=== PATIENT | female | born 1980 | race Caucasian/White ===

== ENCOUNTER 2016-10-27 03:48 | Inpatient (IN) | payer OTHER ==
[~2016-10-27] VITALS: Ht 165.1 cm; Wt 130.2 kg
[2016-10-27] VITALS (11 sets, daily range): BP systolic 107–137; BP diastolic 50–574
--- NOTE | ~2016-10-27 | CON ---
[place], [place] REPORT OF CONSULTATION NAME[id number] UNIT #: [id number] ROOM: [facility] DOCTOR: DENISE WHITAKER MD BIRTHDATE: [birth year] DOS: 10/27/2016 PULMONARY CONSULTATION CONSULTATION REQUESTED BY: Hospitalist services. REASON FOR CONSULTATION: Assessment of the current acute respiratory failure. HISTORY OF PRESENT ILLNESS: This is a 36-year-old white female without any known past, pulmonary problems; patient came into the hospital for extraction of teeth. The patient has about 10 teeth extracted yesterday. Postoperatively, the patient developed severe hypoxic respiratory failure and inability to improve the oxygen saturation. She was started on oxygen supplementation with Venturi mask. The patient was also ordered the BiPAP, but the patient does not wish to use the BiPAP. She was noted severe hypoxemia. Arterial blood gases that was done for this patient yesterday as well that shows a pO2 of only 55.7. The patient has been admitted to the intensive care unit for further medical management. She has a chest x-ray and CT of the chest for the patient was done yesterday as well. Currently, the patient denies symptoms of coughing, chest pain, sputum expectoration or acute shortness of breath, using oxygen supplementation with nasal cannula. REVIEW OF SYSTEMS: CONSTITUTIONAL: She does complain of some fatigue. Denies symptoms of fever or chills. EYES: Denies any burning, redness, or tenderness. EARS, NOSE, AND THROAT: No sore throat, hoarseness, otalgia, postnasal drainage. CARDIOVASCULAR: Denies anginal pain, edema of lower extremities or palpitations. GASTROINTESTINAL: Denies dysphagia, nausea, vomiting, diarrhea, abdominal pain, hematemesis, melena, or hematochezia. GENITOURINARY: Suprapubic pain with urinary incontinence. MUSCULOSKELETAL: Denies acute joint pain, redness, or tenderness. CENTRAL NERVOUS SYSTEM: No dizziness, headache, diplopia, syncopal episodes. SKIN: No lesions or rashes. Remaining systems were reviewed with the patient, they were noted all negative. PAST MEDICAL HISTORY: Noted: 1. History of chronic moderate obesity. 2. Type 2 diabetes mellitus. 3. Mixed hyperlipidemia. PAST SURGICAL HISTORY: Noted: 1. Cholecystectomy. 2. D and C. 3. Recent teeth extraction 10/27/2016. 4. History of tubal ligation. [place], [place] REPORT OF CONSULTATION NAME: [facility]ES [facility]: [id number] UNIT #: [id number] ROOM: [facility] DOCTOR: JESSA SALVADOR MD,DENISE BIRTHDATE: [birth year] SOCIAL HISTORY: The patient is . She lives at home. Denies any past history of tobacco use, alcohol or illicit drugs. FAMILY HISTORY: The patient noted mother from complication related to the lymphoma, history about father was unknown. HOME MEDICATIONS: Noted use of restoril, Claritin, Glucotrol, lisinopril, and metformin. DRUG ALLERGIES: For this noted as no known drug allergies. PHYSICAL EXAMINATION: GENERAL: This is a 18-hnmjx-pvv white female, currently sitting on the bed in the Intensive Care Unit without any distress at the time of the assessment. VITAL SIGNS: Height of 5 feet 5 inches, weight of 287 pounds, BMI of 47.7. Vital signs of the patient which were recorded showed the temperature noted normal since yesterday as respiratory rate range between 18-24, heart rate of 122-92, blood pressure 130/66-137/77, pulse oxygen saturation of the patient on 3 liters nasal cannula 91%-95% saturation with the BiPAP previously 84% saturation and ____ was 85% saturation. HEENT: Head was atraumatic. Eyes nonicterus. Oral mucosa moist. Severely reduced posterior pharyngeal space, high tongue base and crowding of soft tissue structures. CARDIOVASCULAR: S1, S2 is audible. LUNGS: The patient was noted with scattered crackles of the lung noted without any wheezing. ABDOMEN: Soft, obese, nontender. EXTREMITIES: Show no edema. LABORATORY DATA: PT, PTT for the patient that was done yesterday was normal. Arterial blood gas yesterday pH of 7.36, pCO2 36.5, pO2 of 55.7 on 50% Venturi mask. CK-MB and troponin of the patient that were done yesterday and this morning to assess were normal. CBC yesterday 10/27/2016 WBC count 19.2, hemoglobin and hematocrit were normal. Platelet count was normal, 91% segmented neutrophils. CMP yesterday on admission, glucose 160, BUN and creatinine was normal. Remaining LFTs were normal. One view chest x-ray of the patient that was done does not show any acute pulmonary abnormalities on the single view chest x-ray. CT scan of the chest for the patient shows findings of several areas of atelectasis with infiltration in consolidation. The ____ were noted more in the dependent area of the lung as well. Relatively the upper lung of the patient was clear. There was no evidence of pulmonary embolism. The mediastinal ____ examination patient does not show any significant lymphadenopathy. IMPRESSION: 1. The patient who has been currently admitted to the hospital noted with acute severe hypoxemic respiratory failure postoperatively after the current teeth extraction with current finding with possibility of postoperative atelectasis negative pressure pulmonary edema and possibility of aspiration pneumonia would be considered. However, the patient does not show any manifestations. The [place], [place] REPORT OF CONSULTATION NAME: SAJI CORTES UNIT #: [id number] ROOM: [facility] DOCTOR: JESSA SALVADOR MD,DENISE BIRTHDATE: [birth year] patient with fever, signs of sepsis and was not ill prior to the current illness. 2. History of chronic obesity with the suspicion of obstructive sleep apnea disorder. Clinical assessment as well. 3. History of type 2 diabetes mellitus and essential hypertension. PLAN OF TREATMENT: The patient has been responding to the current treatment which was started today consisting by the use of the bronchodilators for this patient continued get the DVT prophylaxis. She was also given Zithromax, Unasyn and antibiotics. Chest x-ray of the patient that has been done this morning was reviewed for further assessment shows reduction of the previous infiltration; however, the resolution was still noted incomplete on the chest x-ray as compared to the previous CT scan of the chest comparison of yesterday. Continue incentive spirometry. Continue current antibiotics for the patient for community acquired aspiration for the gram-positive organism for this patient as well. Monitor respiratory status closely. Oxygen supplementation to be gradually titrated to maintain a saturation of 92% greater. Chest auscultation was still noted crackles suspecting with current edema in the lungs or infiltration in the lungs as reported previously. Bronchodilator will continue help mobilize secretions. We will get the sputum for Gram stain and culture if the patient is able to expectorate any sputum. Another chest x-ray of the patient repeated PTT in the morning for this patient as well. The patient to continue close monitoring of the current respiratory status with a PA lateral chest x-ray will be done Patient needs to be assessed for possibility of obstructive sleep apnea disorder. The patient once discharged from the hospital. DENISE GERMAIN MD CM:CONSTR:REPORT OF CONSULTATION 1222 10/29/16 0304 interface
--- NOTE | ~2016-10-27 | O ---
[place], [place] OPERATIVE NOTE NAME: SAJI CORTES UNIT #: [id number] ROOM: [facility] DOCTOR: MARY LAZARO DMD BIRTHDATE: [birth year] DOS: 10/28/2016 PREOPERATIVE DIAGNOSES: Caries and anxiety. POSTOPERATIVE DIAGNOSES: Caries and anxiety. ANESTHESIA: General anesthesia with endotracheal intubation. FLUIDS: Minimal. ESTIMATED BLOOD LOSS: 200 mL. COMPLICATIONS: Multiple fractured roots and extremely dense bone. CONDITION: To ICU, stable. DESCRIPTION OF PROCEDURE: The patient was brought to the OR and placed in supine position. IV and EKG lines were placed. Endotracheal intubation and general anesthesia was administered. The patient was prepped and draped for oral procedures. Risks and benefits were explained to the patient prior to surgery. Clinical exam and x-rays taken determined impactions of teeth numbers 1, 16, 17, and 32. Extensive caries of teeth numbers 2 14, 15, 18, 19, 20, and 31. PROCEDURES PERFORMED: Full thickness flaps in the upper right and lower right quadrants. Complete extraction of teeth numbers 1 and 2 and teeth numbers 31 and 32. Moderate bone removal in those areas including sectioning of tooth #32. Gelfoam placed with 4-0 Vicryl. Upper left full thickness flap with extensive bone removal. Multiple fractured roots on teeth numbers 14 and 15. Complete extraction of teeth numbers 14, 15, and 16. Gelfoam placed, sutured with 4-0 Vicryl. Lower left quadrant, a full thickness flap with extensive bone removal. Multiple fractured roots on teeth numbers 18 and 19. Complete extraction of teeth numbers 20, 19, 18. Coronectomy on tooth #17, root to remain because of the density of bone and possibility of numbness. Gelfoam placed, sutured with 4-0 Vicryl. Lavaged x 2. Throat pack removed. The patient left the OR in good condition and went to PACU. [place], [place] OPERATIVE NOTE NAME: SAJI CORTES UNIT #: [id number] ROOM: [facility] DOCTOR: MARY LAZARO DMD BIRTHDATE: [birth year] MARY LAZARO DMD CM:OPRECORD:OPERATIVE NOTE [id number] MARY LAZARO DMD 10/28/16 1645 interface
--- NOTE | ~2016-10-27 | PR ---
[place], [place] PROGRESS NOTE [id number] UNIT #: [id number] ROOM: [facility] DOCTOR: DENISE WHITAEKR MD BIRTHDATE: [birth year] DOS: 10/30/2016 PULMONARY PROGRESS NOTE SUBJECTIVE: She has been doing very well at this time. Continues to show progressive improvement and resolution of symptoms of acute shortness of breath. The coughing has been noted minimal. There were no symptoms of chest pain or any abdominal pain. The patient remains on room air oxygen at rest. OBJECTIVE: VITAL SIGNS: Show normal temperature, respiratory rate 17, heart rate 75, blood pressure 142/78-142/79. Intake for the patient 1200, output 2100 mL. Pulse oxygen saturation on room air 96% saturation. HEENT: Showed no acute change. NECK: Supple. CARDIOVASCULAR: S1, S2 audible. LUNGS: The patient was noted without any wheeze or crackles at the present time. ABDOMEN: Soft and nontender. LABORATORY DATA: Chest x-ray of the patient that was done this morning was reviewed, shows continued progressive resolution and improvement in the pulmonary infiltration, which has been noted almost completely today. IMPRESSION: The patient with progressive resolution of acute hypoxic respiratory failure with acute aspiration pneumonia for this patient as well. The patient has been ambulated today for the patient and noted with only transient oxygen desaturation, very quick recovery. Oxygen saturation noted at about 88%. PLAN OF TREATMENT: The patient will be discharged home on oral antibiotic and Ceftin 500 mg p.o. b.i.d. for 7 more days. Outpatient followup for the patient was advised. The patient was also suspected clinically diagnosis of obstructive sleep apnea disorder as well. [place], [place] PROGRESS NOTE NAME: INDIA CORTESNAYELY Valiente UNIT #: [id number] ROOM: [facility] DOCTOR: DENISE WHITAKER MD BIRTHDATE: [birth year] DENISE GERMAIN MD CM:PNTRANS [id number] DENISE SALVADOR MD 10/31/16226 interface
--- NOTE | ~2016-10-27 | PR ---
[place], [place] PROGRESS NOTE NAME: SAJI CORTES UNIT #: [id number] ROOM: [facility] DOCTOR: DENISE WHITAKER MD BIRTHDATE: [birth year] DOS: 10/29/2016 PULMONARY PROGRESS NOTE SUBJECTIVE: The patient has been noted comfortable. The patient shows reduction of the respiratory symptoms gradually. Shortness of breath has improved. Denies symptoms of chest pain. The coughing has been noted mild without any sputum expectoration. OBJECTIVE: VITAL SIGNS: The patient noted temperature of 103 degree Fahrenheit rectal yesterday. Otherwise noted afebrile. The respiratory rate 20-24, heart rate 99-37, blood pressure 136/70-130/70. The pulse oxygen saturation was noted as 94% on 4 liters nasal cannula, and room air was later noted at 94% saturation. HEENT: Examination shows no acute change. NECK: Supple. CARDIOVASCULAR SYSTEM: S1, S2 audible. LUNGS: The patient was noted with questionable crackles, no wheezing. ABDOMEN: Soft, nontender. LABORATORY DATA: The patient's CBC was noted with mild anemia, otherwise normal. Chest x-ray of the patient this morning shows continued improvement in the pulmonary infiltration bilaterally. IMPRESSION: Resolving acute aspiration pneumonia with area of atelectasis of the lung for this patient as well as acute hypoxic respiratory failure. PLAN OF TREATMENT: The patient has been ambulating on my advice and noted transit oxygen desaturation, but recovered quickly on room air oxygen of the patient to 91-92% saturation. The patient will be continued on the oxygen supplementation at night time to manage any hypoxia. Other treatment changes need to be done for this patient based on the progression of the current illness. Another chest x-ray in the morning. Consider possible discharge home in the morning. The patient with oxygen assessment as the patient's current condition for improvement. [place], [place] PROGRESS NOTE NAME: SAJI CORTES UNIT #: [id number] ROOM: [facility] DOCTOR: DENISE WHITAKER MD BIRTHDATE: [birth year] DENISE GERMAIN MD CM:PNTRANS [id number] DENISE SALVADOR MD 10/30/16 011 interface
[~2016-10-27 03:48] MED LIST: ALL DAY ALLERGY10 MG PO; ANAPROX DS550 MG PO; CLEOCIN HCL300 MG PO; FLUCONAZOLE150 MG PO; GLUCOTROL5 MG PO; LISINOPRIL5 MG PO; METFORMIN HCL1000 MG PO; TANZEUM30 MG SC; VICODIN 5/500 505 MG PO
[2016-10-27] MEDS ORDERED: CLINDAMYCIN150 MG PO (14:18)
[2016-10-27] MEDS ORDERED: MEDROL DOSEPAK4 MG PO (14:19)
[2016-10-27] MEDS ORDERED: NORCO 5-325 TA1 EACH PO (14:20)
[2016-10-27 17:44] LABS: ABG BASE EXCESS -3.8 mmol/L (-2.0-2.0); ABG CO2 CONTENT 21.5 mmol/L (23-27); ABG HCO3 20.4 mmol/l (22-26); ABG TEMPERATURE 98.7 F (98.0-99.0); ARTERIAL BLOOD GAS PH 7.367 (7.35-7.45); ARTERIAL BLOOD GAS PO2 55.7 mmHg (80-90)
[2016-10-27 18:09] LABS: HEMATOCRIT 37.1 % (37.0-47.0); HEMOGLOBIN 12.1 g/dl (12.0-16.0); MEAN CELL VOLUME 90.5 fl (81.0-99.0); MEAN CORPUSCULAR HGB 29.5 pg (27.0-31.0); MEAN CORPUSCULAR HGB CONC 32.6 g/dl (33.0-37.0); PLATELET COUNT AUTOMATED 314 10*3/uL (130-400); RED CELL DISTRI WIDTH 13.3 % (0-14.5); WHITE BLOOD COUNT 19.2 10*3/uL (4.8-10.8)
[2016-10-27 18:18] LABS: PROTHROMBIN TIME 10.1 SECONDS (9.0-12.4)
[2016-10-27 18:25] LABS: CKMB 1.4 ng/ml (0.5-3.6); CPK 102 U/L (26-192)
[2016-10-27 18:26] LABS: ALBUMIN 3.2 gm/dl (3.1-4.5); ALKALINE PHOSPHATASE 83 U/L (45-117); BILIRUBIN, TOTAL 0.4 mg/dl (0.2-1.0); BUN 10 mg/dl (7-24); CARBON DIOXIDE 25 mmol/L (21-32); CHLORIDE 106 mmol/L (98-107); CHOLESTEROL 187 mg/dL (<200); EST GLOM FILT AFRICAN AMERICAN > 60 ml/min; FREE T4 1.33 ng/dl (0.76-1.46); GLUCOSE 168 mg/dL (65-99); HDL CHOLESTEROL 52 mg/dl (40-60); LDL CHOLESTEROL 117 mg/dL (9-159); MAGNESIUM 1.4 mg/dL (1.5-2.1); PHOSPHOROUS 2.5 mg/dL (2.5-4.9); POTASSIUM 4.4 mmol/L (3.5-5.1); SGOT/AST 50 IU/L (3-35); SGPT/ALT 57 U/L (12-78); SODIUM 137 mmol/L (136-145); TRIGLYCERIDES 88 mg/dl (<150); VLDL CHOLESTEROL 18 mg/dL (6-40)
[2016-10-27 18:27] LABS: LYMPHOCYTE # 1.3 10*3/uL (1.3-4.4); MONOCYTE # 0.4 10*3/uL (0.1-1.0); NEUTROPHIL # 17.5 10*3/uL (2.3-7.9); NEUTROPHILS 91 % (47-73); PLATELET SUFFICIENCY NORMAL (NORMAL); TOTAL CELLS COUNTED 100 #CELLS; TROPONIN I < 0.015 ng/ml (<0.045)
[2016-10-27 18:30] LABS: HEMOGLOBIN A1c 7.1 % (4.8-5.6)
[2016-10-27 18:32] LABS: THYROID STIM HORMONE (HS) 0.822 uIU/ml (0.358-4.75)
[2016-10-27 18:50] LABS: FOLIC ACID 21.33 ng/mL (>5.38); VITAMIN D, 25-HYDROXY 16.5 ng/mL (30-100)
[2016-10-28] VITALS: BP 111/47
[2016-10-28 00:41] LABS: CKMB 1.6 ng/ml (0.5-3.6); CPK 120 U/L (26-192); TROPONIN I < 0.015 ng/ml (<0.045)
[2016-10-28 04:00] VITALS: BP 116/50
[2016-10-28 06:48] LABS: BASO % 0.3 % (0.0-1.0); EOS % 0.1 % (1.0-4.0); HEMATOCRIT 33.4 % (37.0-47.0); HEMOGLOBIN 10.9 g/dl (12.0-16.0); LYMPH # 1.5 10*3/uL (1.3-4.4); LYMPH % 12.7 % (27.0-41.0); MEAN CELL VOLUME 90.5 fl (81.0-99.0); MEAN CORPUSCULAR HGB 29.5 pg (27.0-31.0); MEAN CORPUSCULAR HGB CONC 32.6 g/dl (33.0-37.0); MEAN PLATELET VOLUME 9.2 fl (9.6-12.3); MONO # 0.8 10*3/uL (0.1-1.0); MONO % 6.7 % (3.0-9.0); NEUT # 9.7 10*3/uL (2.3-7.9); PLATELET COUNT AUTOMATED 288 10*3/uL (130-400); RED BLOOD COUNT 3.69 10*6/uL (4.10-5.10); RED CELL DISTRI WIDTH 13.7 % (0-14.5); WHITE BLOOD COUNT 12.1 10*3/uL (4.8-10.8)
[2016-10-28 07:06] LABS: CKMB 1.5 ng/ml (0.5-3.6); CPK 98 U/L (26-192)
[2016-10-28 07:10] LABS: TROPONIN I < 0.015 ng/ml (<0.045)
[2016-10-28 07:27] LABS: CHLORIDE 106 mmol/L (98-107); POTASSIUM 3.9 mmol/L (3.5-5.1); SODIUM 138 mmol/L (136-145)
[2016-10-28 07:33] LABS: BUN 8 mg/dl (7-24); CARBON DIOXIDE 27 mmol/L (21-32); EST GLOM FILT AFRICAN AMERICAN > 60 ml/min; GLUCOSE 142 mg/dL (65-99)
[2016-10-28 08:00] VITALS: BP 108/64
[2016-10-28 12:00] VITALS: BP 110/60
[2016-10-28 16:00] VITALS: BP 132/71
[2016-10-28 20:00] VITALS: BP 157/61
[2016-10-29] VITALS (7 sets, daily range): BP systolic 114–151; BP diastolic 53–87
[2016-10-29 06:02] LABS: BASO % 0.4 % (0.0-1.0); EOS # 0.1 10*3/uL (0.0-0.4); EOS % 1.4 % (1.0-4.0); HEMATOCRIT 32.6 % (37.0-47.0); HEMOGLOBIN 10.6 g/dl (12.0-16.0); LYMPH # 1.7 10*3/uL (1.3-4.4); LYMPH % 18.5 % (27.0-41.0); MEAN CELL VOLUME 91.8 fl (81.0-99.0); MEAN CORPUSCULAR HGB 29.9 pg (27.0-31.0); MEAN CORPUSCULAR HGB CONC 32.5 g/dl (33.0-37.0); MEAN PLATELET VOLUME 9.3 fl (9.6-12.3); MONO # 0.7 10*3/uL (0.1-1.0); NEUT # 6.4 10*3/uL (2.3-7.9); NEUT % 71.5 % (47.0-73.0); PLATELET COUNT AUTOMATED 270 10*3/uL (130-400); RED BLOOD COUNT 3.55 10*6/uL (4.10-5.10); RED CELL DISTRI WIDTH 13.7 % (0-14.5)
[2016-10-30 04:00] VITALS: BP 142/78
[2016-10-30 05:53] LABS: BASO % 0.5 % (0.0-1.0); EOS # 0.2 10*3/uL (0.0-0.4); EOS % 3.3 % (1.0-4.0); HEMATOCRIT 32.6 % (37.0-47.0); HEMOGLOBIN 10.4 g/dl (12.0-16.0); LYMPH # 1.9 10*3/uL (1.3-4.4); LYMPH % 26.1 % (27.0-41.0); MEAN CELL VOLUME 91.6 fl (81.0-99.0); MEAN CORPUSCULAR HGB 29.2 pg (27.0-31.0); MEAN CORPUSCULAR HGB CONC 31.9 g/dl (33.0-37.0); MEAN PLATELET VOLUME 9.5 fl (9.6-12.3); MONO # 0.6 10*3/uL (0.1-1.0); MONO % 7.7 % (3.0-9.0); NEUT # 4.6 10*3/uL (2.3-7.9); NEUT % 62.1 % (47.0-73.0); PLATELET COUNT AUTOMATED 297 10*3/uL (130-400); RED BLOOD COUNT 3.56 10*6/uL (4.10-5.10); RED CELL DISTRI WIDTH 13.6 % (0-14.5); WHITE BLOOD COUNT 7.3 10*3/uL (4.8-10.8)
[2016-10-30] MEDS ORDERED: CEFUROXIME AXE250 MG PO (09:58)
== END 2016-10-30 11:45 | disposition home or self-care (01) | DRG 853 ==
LOC: SDC 03:48 → ICCU 15:43
PROVIDERS: Internal Medicine
PROC: 0CDWXZ1 Extraction of Upper Tooth, Multiple, External Approach (ICD-10-PCS; principal; 2016-10-28)
PROC: 0CDXXZ1 Extraction of Lower Tooth, Multiple, External Approach (ICD-10-PCS; principal; 2016-10-28)
PROC: 5A09357 Assistance with Respiratory Ventilation, Less than 24 Consecutive Hours, Continuous Positive Airway Pressure (ICD-10-PCS; principal; 2016-10-28)
PROC: 0NBV0ZZ Excision of Left Mandible, Open Approach (ICD-10-PCS; principal; 2016-10-28)
DX: A41.9 Sepsis, unspecified organism (principal); J15.6 Pneumonia due to other Gram-negative bacteria; J96.01 Acute respiratory failure with hypoxia; E11.638 Type 2 diabetes mellitus with other oral complications; E44.0 Moderate protein-calorie malnutrition; Z68.42 Body mass index [BMI] 45.0-49.9, adult; J98.11 Atelectasis; E83.42 Hypomagnesemia; E66.01 Morbid (severe) obesity due to excess calories; K02.9 Dental caries, unspecified; F41.9 Anxiety disorder, unspecified; E78.2 Mixed hyperlipidemia; G47.33 Obstructive sleep apnea (adult) (pediatric); D64.9 Anemia, unspecified; E55.9 Vitamin D deficiency, unspecified

== ENCOUNTER 2016-11-14 11:58 | Emergency (ER) | payer OTHER ==
[~2016-11-14] VITALS: Ht 165.1 cm; Wt 125.2 kg
[~2016-11-14 11:58] MED LIST changes: +CEFUROXIME AXE250 MG PO; +CLINDAMYCIN150 MG PO; +MEDROL DOSEPAK4 MG PO; +NORCO 5-325 TA1 EACH PO
[2016-11-14 12:21] LABS: BASO # 0.1 10*3/uL (0.0-0.1); BASO % 0.6 % (0.0-1.0); EOS # 0.1 10*3/uL (0.0-0.4); EOS % 1.7 % (1.0-4.0); HEMATOCRIT 37.5 % (37.0-47.0); HEMOGLOBIN 12.5 g/dl (12.0-16.0); LYMPH # 2.4 10*3/uL (1.3-4.4); LYMPH % 28.8 % (27.0-41.0); MEAN CELL VOLUME 88.9 fl (81.0-99.0); MEAN CORPUSCULAR HGB 29.6 pg (27.0-31.0); MEAN CORPUSCULAR HGB CONC 33.3 g/dl (33.0-37.0); MEAN PLATELET VOLUME 9.3 fl (9.6-12.3); MONO # 0.7 10*3/uL (0.1-1.0); MONO % 8.1 % (3.0-9.0); NEUT # 5.1 10*3/uL (2.3-7.9); NEUT % 60.7 % (47.0-73.0); PLATELET COUNT AUTOMATED 330 10*3/uL (130-400); RED BLOOD COUNT 4.22 10*6/uL (4.10-5.10); RED CELL DISTRI WIDTH 13.3 % (0-14.5); WHITE BLOOD COUNT 8.3 10*3/uL (4.8-10.8)
[2016-11-14 12:32] LABS: PROTHROMBIN TIME 10.2 SECONDS (9.0-12.4)
[2016-11-14 12:37] LABS: ALBUMIN 3.5 gm/dl (3.1-4.5); ALKALINE PHOSPHATASE 83 U/L (45-117); BILIRUBIN, TOTAL 0.2 mg/dl (0.2-1.0); BUN 12 mg/dl (7-24); CARBON DIOXIDE 26 mmol/L (21-32); CHLORIDE 106 mmol/L (98-107); EST GLOM FILT AFRICAN AMERICAN > 60 ml/min; GLUCOSE 102 mg/dL (65-99); MAGNESIUM 1.8 mg/dL (1.5-2.1); SGOT/AST 39 IU/L (3-35); SGPT/ALT 64 U/L (12-78); SODIUM 141 mmol/L (136-145); TOTAL PROTEIN 7.5 gm/dL (6.4-8.2)
[2016-11-14 12:42] LABS: TROPONIN I < 0.015 ng/ml (<0.045)
[2016-11-14 13:54] VITALS: BP 123/83
== END 2016-11-14 14:45 | disposition home or self-care (01) ==
LOC: ED 11:58
PROVIDERS: Student in an Organized Health Care Education/Training Program
DX: R00.0 Tachycardia, unspecified (principal); R03.0 Elevated blood-pressure reading, without diagnosis of hypertension; E11.9 Type 2 diabetes mellitus without complications; E78.5 Hyperlipidemia, unspecified; E55.9 Vitamin D deficiency, unspecified; E66.01 Morbid (severe) obesity due to excess calories; Z68.42 Body mass index [BMI] 45.0-49.9, adult; Z90.49 Acquired absence of other specified parts of digestive tract; Z98.890 Other specified postprocedural states; Z98.51 Tubal ligation status; Z79.899 Other long term (current) drug therapy

== ENCOUNTER → 2016-12-17 | Outpatient (CLI) | payer OTHER | LOC: US 06:50 | DX: K76.0 Fatty (change of) liver, not elsewhere classified (principal); R94.5 Abnormal results of liver function studies ==

== ENCOUNTER → 2019-08-07 | Outpatient (CLI) | payer OTHER | END | disposition home or self-care (01) | LOC: US 12:06 | DX: N83.201 Unspecified ovarian cyst, right side (principal); N92.4 Excessive bleeding in the premenopausal period; N93.8 Other specified abnormal uterine and vaginal bleeding ==

== ENCOUNTER → 2019-11-21 | Outpatient (CLI) | payer OTHER | END | disposition home or self-care (01) | LOC: US 11:30 | DX: N93.9 Abnormal uterine and vaginal bleeding, unspecified (principal); N83.201 Unspecified ovarian cyst, right side ==

== ENCOUNTER 2019-12-11 18:25 | Emergency (ER) | payer OTHER ==
[~2019-12-11] VITALS: Ht 165.1 cm; Wt 125.2 kg
[2019-12-11 18:34] VITALS: BP 134/67
== END 2019-12-11 21:00 | disposition home or self-care (01) ==
LOC: ED 18:25
DX: S49.91XA Unspecified injury of right shoulder and upper arm, initial encounter (principal); E11.9 Type 2 diabetes mellitus without complications; I10 Essential (primary) hypertension; Z79.899 Other long term (current) drug therapy; X50.1XXA Overexertion from prolonged static or awkward postures, initial encounter; Y93.89 Activity, other specified; Y92.89 Other specified places as the place of occurrence of the external cause; Y99.8 Other external cause status

== ENCOUNTER → 2020-01-04 | Outpatient (CLI) | payer OTHER ==
[~2020-01-04] MED LIST changes: +ASPIRIN81 M1 PO; +JARDIANCE10 MG PO; +SUNMARK OMEPRAZ20 M1 PO; +TRULICITY1.5 MG/0.5 SC
== END | disposition home or self-care (01) ==
LOC: COVID19 12-21 13:00 → LAB 00:12 → COVID19 00:12
DX: Z03.818 Encounter for observation for suspected exposure to other biological agents ruled out (principal); N93.9 Abnormal uterine and vaginal bleeding, unspecified

== ENCOUNTER → 2020-01-09 | Day surgery (SDC) | payer OTHER ==
[2020-01-04 13:57] VITALS: BP 136/78
[~2020-01-09] VITALS: Ht 165.1 cm; Wt 123.8 kg
[~2020-01-09] MED LIST changes: +Motrin,Rufen800 MG PO
[2020-01-09 06:38] VITALS: BP 145/67
[2020-01-09 08:22] VITALS: BP 141/76
[2020-01-09 08:37] VITALS: BP 114/61
[2020-01-09 08:52] VITALS: BP 106/58
[2020-01-09 09:07] VITALS: BP 104/58
[2020-01-09 09:21] VITALS: BP 102/60
== END | disposition home or self-care (01) ==
LOC: SDC 12-21 14:00
DX: N93.9 Abnormal uterine and vaginal bleeding, unspecified (principal); N85.00 Endometrial hyperplasia, unspecified; E11.9 Type 2 diabetes mellitus without complications; K21.9 Gastro-esophageal reflux disease without esophagitis; Z98.890 Other specified postprocedural states; Z79.899 Other long term (current) drug therapy

== ENCOUNTER → 2022-03-09 | Outpatient (CLI) | payer OTHER | END | disposition home or self-care (01) | LOC: RAD 13:43 | PROVIDERS: ATTEND Nurse Practitioner Family | DX: U07.1 COVID-19 (principal); J98.11 Atelectasis; E11.9 Type 2 diabetes mellitus without complications ==

== ENCOUNTER → 2022-06-01 | Outpatient (CLI) | payer OTHER | END | disposition home or self-care (01) | LOC: RAD 15:29 | PROVIDERS: ATTEND Nurse Practitioner Family | DX: M79.641 Pain in right hand (principal) ==

== ENCOUNTER → 2022-08-31 | Outpatient (CLI) | payer OTHER ==
[2022-08-31 13:10] LABS: BASO # 0.1 10*3/uL (0.0-0.1); BASO % 0.7 % (0.0-1.0); EOS # 0.4 10*3/uL (0.0-0.4); EOS % 5.6 % (1.0-4.0); HEMATOCRIT 40.3 % (37.0-47.0); LYMPH % 28.5 % (27.0-41.0); MEAN CELL VOLUME 90.4 fl (81.0-99.0); MEAN CORPUSCULAR HGB CONC 33.3 g/dl (33.0-37.0); MEAN PLATELET VOLUME 8.9 fl (9.6-12.3); MONO # 0.5 10*3/uL (0.1-1.0); MONO % 7.4 % (3.0-9.0); NEUT # 4.1 10*3/uL (2.3-7.9); NEUT % 57.5 % (47.0-73.0); PLATELET COUNT AUTOMATED 324 10*3/uL (130-400); RED BLOOD COUNT 4.46 10*6/uL (4.10-5.10); WHITE BLOOD COUNT 7.1 10*3/uL (4.8-10.8)
[2022-08-31 13:29] LABS: ALKALINE PHOSPHATASE 77 U/L (46-116); BUN 8 mg/dl (9-23); CHLORIDE 107 mmol/L (98-107); CHOLESTEROL 132 mg/dL (<200); LDL CHOLESTEROL 68 mg/dL (9-159); POTASSIUM 3.8 mmol/L (3.4-5.1); SGPT/ALT 26 U/L (10-49); TRIGLYCERIDES 102 mg/dl (<150)
== END | disposition home or self-care (01) ==
LOC: LAB 12:42
PROVIDERS: ATTEND Nurse Practitioner Family
DX: I10 Essential (primary) hypertension (principal); E11.9 Type 2 diabetes mellitus without complications; E78.00 Pure hypercholesterolemia, unspecified; H66.91 Otitis media, unspecified, right ear; R09.81 Nasal congestion; J02.9 Acute pharyngitis, unspecified

== ENCOUNTER → 2022-12-01 | Outpatient (CLI) | payer OTHER ==
[2022-12-01 10:21] LABS: BASO # 0.1 10*3/uL (0.0-0.1); EOS # 0.4 10*3/uL (0.0-0.4); EOS % 5.2 % (1.0-4.0); HEMATOCRIT 40.6 % (37.0-47.0); LYMPH % 27.8 % (27.0-41.0); MEAN CELL VOLUME 89.8 fl (81.0-99.0); MEAN CORPUSCULAR HGB 30.5 pg (27.0-31.0); MEAN PLATELET VOLUME 8.7 fl (9.6-12.3); MONO # 0.5 10*3/uL (0.1-1.0); MONO % 7.4 % (3.0-9.0); NEUT # 4.2 10*3/uL (2.3-7.9); NEUT % 58.5 % (47.0-73.0); PLATELET COUNT AUTOMATED 302 10*3/uL (130-400); RED BLOOD COUNT 4.52 10*6/uL (4.10-5.10); RED CELL DISTRI WIDTH 12.4 % (0-14.5); WHITE BLOOD COUNT 7.3 10*3/uL (4.8-10.8)
== END | disposition home or self-care (01) ==
LOC: LAB 10:04
PROVIDERS: ATTEND Nurse Practitioner Family
DX: E11.9 Type 2 diabetes mellitus without complications (principal); I10 Essential (primary) hypertension; E78.00 Pure hypercholesterolemia, unspecified; J30.9 Allergic rhinitis, unspecified

== ENCOUNTER → 2023-12-22 | Outpatient (CLI) | payer OTHER ==
[2023-12-22 12:29] LABS: BASO # 0.1 10*3/uL (0.0-0.1); BASO % 0.7 % (0.0-1.0); EOS # 0.4 10*3/uL (0.0-0.4); EOS % 5.1 % (1.0-4.0); HEMATOCRIT 40.9 % (37.0-47.0); LYMPH # 1.7 10*3/uL (1.3-4.4); LYMPH % 23.5 % (27.0-41.0); MEAN CELL VOLUME 88.5 fl (81.0-99.0); MEAN CORPUSCULAR HGB 30.3 pg (27.0-31.0); MEAN CORPUSCULAR HGB CONC 34.2 g/dl (33.0-37.0); MEAN PLATELET VOLUME 9.2 fl (9.6-12.3); MONO # 0.6 10*3/uL (0.1-1.0); MONO % 7.8 % (3.0-9.0); NEUT # 4.6 10*3/uL (2.3-7.9); NEUT % 62.6 % (47.0-73.0); PLATELET COUNT AUTOMATED 296 10*3/uL (130-400); RED BLOOD COUNT 4.62 10*6/uL (4.10-5.10); RED CELL DISTRI WIDTH 12.8 % (0-14.5); WHITE BLOOD COUNT 7.4 10*3/uL (4.8-10.8)
[2023-12-22 12:47] LABS: ALKALINE PHOSPHATASE 79 U/L (46-116); BUN 9 mg/dl (9-23); CHLORIDE 104 mmol/L (98-107); CHOLESTEROL 146 mg/dL (<200); LDL CHOLESTEROL 77 mg/dL (9-159); POTASSIUM 3.9 mmol/L (3.4-5.1); SGPT/ALT 39 U/L (5-49); TRIGLYCERIDES 95 mg/dl (<150)
[2023-12-22 12:48] LABS: URINE CREATININE RANDOM 119.6 mg/dL
== END | disposition home or self-care (01) ==
LOC: LAB 11:46
PROVIDERS: ATTEND Nurse Practitioner Family
DX: I10 Essential (primary) hypertension (principal); J32.9 Chronic sinusitis, unspecified; E11.9 Type 2 diabetes mellitus without complications; B96.89 Other specified bacterial agents as the cause of diseases classified elsewhere

== ENCOUNTER → 2023-12-28 | Outpatient (CLI) | payer OTHER | END | disposition home or self-care (01) | LOC: LAB 18:11 | PROVIDERS: ATTEND Nurse Practitioner Family | DX: R05.1 Acute cough (principal); I10 Essential (primary) hypertension; E11.9 Type 2 diabetes mellitus without complications; E78.00 Pure hypercholesterolemia, unspecified; M19.041 Primary osteoarthritis, right hand; M19.042 Primary osteoarthritis, left hand; H92.01 Otalgia, right ear; Z20.822 Contact with and (suspected) exposure to COVID-19 ==

== ENCOUNTER → 2024-01-07 | Outpatient (CLI) | payer OTHER | END | disposition home or self-care (01) | LOC: LAB 13:31 | PROVIDERS: ATTEND Nurse Practitioner Family | DX: M19.041 Primary osteoarthritis, right hand (principal); M19.042 Primary osteoarthritis, left hand ==

== ENCOUNTER → 2024-04-06 | Outpatient (CLI) | payer OTHER ==
[2024-04-06 11:36] LABS: BASO # 0.1 10*3/uL (0.0-0.1); BASO % 0.9 % (0.0-1.0); EOS # 0.5 10*3/uL (0.0-0.4); EOS % 5.3 % (1.0-4.0); HEMATOCRIT 41.8 % (37.0-47.0); LYMPH # 2.5 10*3/uL (1.3-4.4); LYMPH % 28.3 % (27.0-41.0); MEAN CELL VOLUME 91.5 fl (81.0-99.0); MEAN CORPUSCULAR HGB 29.8 pg (27.0-31.0); MEAN CORPUSCULAR HGB CONC 32.5 g/dl (33.0-37.0); MEAN PLATELET VOLUME 9.3 fl (9.6-12.3); MONO # 0.7 10*3/uL (0.1-1.0); MONO % 7.7 % (3.0-9.0); NEUT # 5.2 10*3/uL (2.3-7.9); NEUT % 57.5 % (47.0-73.0); PLATELET COUNT AUTOMATED 319 10*3/uL (130-400); RED BLOOD COUNT 4.57 10*6/uL (4.10-5.10); RED CELL DISTRI WIDTH 12.8 % (0-14.5)
[2024-04-06 11:55] LABS: URINE CREATININE RANDOM 114.13 mg/dL
[2024-04-06 12:04] LABS: ALKALINE PHOSPHATASE 95 U/L (46-116); BUN 9 mg/dl (9-23); CHLORIDE 104 mmol/L (98-107); CHOLESTEROL 164 mg/dL (<200); LDL CHOLESTEROL 87 mg/dL (9-159); POTASSIUM 3.8 mmol/L (3.4-5.1); SGPT/ALT 47 U/L (5-49); TOTAL PROTEIN 7.2 gm/dL (6.0-8.0); TRIGLYCERIDES 135 mg/dl (<150)
== END | disposition home or self-care (01) ==
LOC: LAB 10:56
PROVIDERS: ATTEND Nurse Practitioner Family
DX: I10 Essential (primary) hypertension (principal); E11.9 Type 2 diabetes mellitus without complications; E78.00 Pure hypercholesterolemia, unspecified; M19.041 Primary osteoarthritis, right hand; M19.042 Primary osteoarthritis, left hand; H92.01 Otalgia, right ear; R05.1 Acute cough

== ENCOUNTER → 2024-07-25 | Outpatient (CLI) | payer OTHER ==
[2024-07-25 16:56] LABS: BASO # 0.1 10*3/uL (0.0-0.1); BASO % 1.1 % (0.0-1.0); EOS # 0.3 10*3/uL (0.0-0.4); EOS % 4.5 % (1.0-4.0); HEMATOCRIT 43.9 % (37.0-47.0); MEAN CELL VOLUME 91.6 fl (81.0-99.0); MEAN CORPUSCULAR HGB 29.6 pg (27.0-31.0); MEAN CORPUSCULAR HGB CONC 32.3 g/dl (33.0-37.0); MONO # 0.6 10*3/uL (0.1-1.0); NEUT # 4.6 10*3/uL (2.3-7.9); NEUT % 61.5 % (47.0-73.0); PLATELET COUNT AUTOMATED 306 10*3/uL (130-400); RED BLOOD COUNT 4.79 10*6/uL (4.10-5.10); RED CELL DISTRI WIDTH 12.5 % (0-14.5); WHITE BLOOD COUNT 7.5 10*3/uL (4.8-10.8)
[2024-07-25 17:07] LABS: ALKALINE PHOSPHATASE 80 U/L (46-116); BUN 9 mg/dl (9-23); CHLORIDE 102 mmol/L (98-107); CHOLESTEROL 165 mg/dL (<200); LDL CHOLESTEROL 86 mg/dL (9-159); POTASSIUM 4.3 mmol/L (3.4-5.1); SGPT/ALT 49 U/L (5-49); TRIGLYCERIDES 134 mg/dl (<150)
== END | disposition home or self-care (01) ==
LOC: ZRHCWE 16:50
PROVIDERS: ATTEND Nurse Practitioner Family
DX: E11.9 Type 2 diabetes mellitus without complications (principal); E78.00 Pure hypercholesterolemia, unspecified; Z68.42 Body mass index [BMI] 45.0-49.9, adult; I10 Essential (primary) hypertension

== ENCOUNTER → 2024-10-24 | Outpatient (CLI) | payer OTHER ==
[2024-10-24 18:02] LABS: BASO # 0.1 10*3/uL (0.0-0.1); EOS # 0.4 10*3/uL (0.0-0.4); EOS % 3.9 % (1.0-4.0); HEMATOCRIT 41.9 % (37.0-47.0); MEAN CELL VOLUME 89.9 fl (81.0-99.0); MEAN CORPUSCULAR HGB 29.8 pg (27.0-31.0); MEAN CORPUSCULAR HGB CONC 33.2 g/dl (33.0-37.0); MEAN PLATELET VOLUME 9.6 fl (9.6-12.3); MONO # 0.9 10*3/uL (0.1-1.0); MONO % 9.5 % (3.0-9.0); NEUT # 5.1 10*3/uL (2.3-7.9); NEUT % 57.7 % (47.0-73.0); PLATELET COUNT AUTOMATED 377 10*3/uL (130-400); RED BLOOD COUNT 4.66 10*6/uL (4.10-5.10); RED CELL DISTRI WIDTH 12.8 % (0-14.5); WHITE BLOOD COUNT 8.9 10*3/uL (4.8-10.8)
[2024-10-24 19:18] LABS: ALKALINE PHOSPHATASE 79 U/L (46-116); BUN 14 mg/dl (9-23); CHLORIDE 101 mmol/L (98-107); SGPT/ALT 31 U/L (5-49); TOTAL PROTEIN 7.5 gm/dL (6.0-8.0)
== END | disposition home or self-care (01) ==
LOC: LAB 17:28
PROVIDERS: ATTEND Nurse Practitioner Family
DX: I10 Essential (primary) hypertension (principal); E11.65 Type 2 diabetes mellitus with hyperglycemia; Z76.89 Persons encountering health services in other specified circumstances; Z79.4 Long term (current) use of insulin

== ENCOUNTER → 2025-01-23 | Outpatient (CLI) | payer OTHER ==
[2025-01-23 17:01] LABS: BASO # 0.1 10*3/uL (0.0-0.1); BASO % 0.7 % (0.0-1.0); EOS # 0.2 10*3/uL (0.0-0.4); EOS % 2.9 % (1.0-4.0); MEAN CELL VOLUME 92.2 fl (81.0-99.0); MEAN CORPUSCULAR HGB 30.0 pg (27.0-31.0); MEAN PLATELET VOLUME 9.7 fl (9.6-12.3); MONO # 0.6 10*3/uL (0.1-1.0); MONO % 8.1 % (3.0-9.0); NEUT # 4.4 10*3/uL (2.3-7.9); NEUT % 61.6 % (47.0-73.0); NUCLEATED RED BLOOD CELL 0.0 % (0.0-0.0); NUCLEATED RED BLOOD CELL 0.0 10*3/uL (0.0-0.0); PLATELET COUNT AUTOMATED 306 10*3/uL (130-400); RED CELL DISTRI WIDTH 13.3 % (0-14.5)
[2025-01-23 17:37] LABS: BUN 12 mg/dl (9-23); SGPT/ALT 25 U/L (5-49)
== END | disposition home or self-care (01) ==
LOC: RHCWE 08:30
PROVIDERS: ATTEND Nurse Practitioner Family
DX: I10 Essential (primary) hypertension (principal); E78.00 Pure hypercholesterolemia, unspecified; E11.65 Type 2 diabetes mellitus with hyperglycemia; J30.9 Allergic rhinitis, unspecified; J01.00 Acute maxillary sinusitis, unspecified; Z00.00 Encounter for general adult medical examination without abnormal findings; Z79.4 Long term (current) use of insulin

== ENCOUNTER → 2025-05-01 | Outpatient (CLI) | payer OTHER ==
[2025-05-01 18:14] LABS: BUN 11 mg/dl (9-23); SGPT/ALT 27 U/L (5-49)
== END | disposition home or self-care (01) ==
LOC: RHCWE 11:43
PROVIDERS: ATTEND Nurse Practitioner Family
DX: Z00.00 Encounter for general adult medical examination without abnormal findings (principal); E11.65 Type 2 diabetes mellitus with hyperglycemia; I10 Essential (primary) hypertension; E78.00 Pure hypercholesterolemia, unspecified; J30.9 Allergic rhinitis, unspecified; Z79.4 Long term (current) use of insulin